=== PATIENT | male | born 1950 | race Caucasian/White ===

== ENCOUNTER 2016-06-19 21:21 | Emergency (ER) | payer BC ==
--- NOTE | 2016-06-19 22:57 | DIAGNOSTIC IMAGING REPORT ---
PROCEDURE: XR CHEST 1 VIEW INDICATION: CHEST PAIN TECHNIQUE: Portable AP view (). COMPARISON: Compared to chest x-ray on 08/29/2012. FINDINGS: Status post mediastinotomy. Interim placement of left subclavian pacemaker/defibrillator. Lungs are clear. Borderline cardiomegaly. Mediastinum is of normal size with tortuous aorta. There is an old distal left clavicle fracture. IMPRESSION: 1. Status post coronary artery bypass graft. 2. Left subclavian pacemaker/defibrillator. 3. Borderline cardiomegaly. 4. Otherwise negative chest.
--- NOTE | 2016-06-19 23:31 | DIAGNOSTIC IMAGING REPORT ---
PROCEDURE: CTA THORAX WITH CONTRAST INDICATION: Left chest pain. Cardiac history. Assess for pulmonary embolus. TECHNIQUE: 85 ml of Isovue 370 was injected intravenously and axial images were obtained of the entire thorax with 3D sagittal and coronal MIP reconstructions. COMPARISON: Comparison made to chest x-ray earlier in the day (06/19/2016). FINDINGS: Lungs are clear (of mild bilateral parenchymal scarring). Pulmonary vessels are normal and there is no evidence of pulmonary embolus. Status post mediastinotomy and coronary artery bypass graft. Left subclavian pacemaker/defibrillator. Mild cardiomegaly. Mediastinum is normal. There are old left rib fractures. IMPRESSION: 1. No evidence of pulmonary embolus. 2. Status post coronary artery bypass graft. 3. Left subclavian pacemaker/defibrillator. 4. Mild cardiomegaly. 5. Findings discussed with Dr. Miguel Pierre. All CT scans at this facility use dose modulation, iterative reconstruction, and/or weight-based dosing when appropriate to reduce radiation dose to as low as reasonably achievable.
--- NOTE | 2016-06-20 00:54 | ED ORDER SUMMARY ---
..... Patient: BRAXTON MIN OrderSheet [facility] VisitID: [id number] [address] [place] [address] 65y, M Registration Date/Time: 06/19/2016 ORDER SHEET Weight: 75.7 kg (stated) Allergies: None GENERAL ORDERS: Envelope Press Operator (Continuous) (cp) (21:06/19/2016 Nathaniel Pappas) (Ack 21:27 AMcQuoid ER Tech1) (21:30 NHouse ER Tech1) Chest 1V Urgent (21:06/19/2016 Nathaniel Pappas) (Ack 21:27 AMcQuoid ER Tech1) (21:33 RFay) CBC w Diff Urgent (21:06/19/2016 Nathaniel Pappas) (Ack 21:27 AMcQuoid ER Tech1) (21:48 AMcQuoid ER Tech1) CMP Urgent (21:06/19/2016 Nathaniel Pappas) (Ack 21:27 AMcQuoid ER Tech1) (21:48 AMcQuoid ER Tech1) PT with INR Urgent (21:06/19/2016 Nathaniel Pappas) (Ack 21:27 AMcQuoid ER Tech1) (21:48 AMcQuoid ER Tech1) UA-Culture if indicated Urgent (21:06/19/2016 Nathaniel Pappas) (Ack 21:27 AMcQuoid ER Tech1) (Cancelled: Patient Unavailable0:55 HSoule) Troponin-I Urgent (21:06/19/2016 Nathaniel Pappas) (Ack 21:27 AMcQuoid ER Tech1) (21:48 AMcQuoid ER Tech1) D-Dimer Urgent (21:06/19/2016 Nathaniel Pappas) (Ack 21:27 AMcQuoid ER Tech1) (21:48 AMcQuoid ER Tech1) EKG - ER Stat (21:06/19/2016 Nathaniel Pappas) (Ack 21:27 AMcQuoid ER Tech1) (21:30 NHouse ER Tech1) Pulse oximeter (21:06/19/2016 Nathaniel Pappas) (Ack 21:27 AMcQuoid ER Tech1) (21:30 NHouse ER Tech1) BNP Urgent (21:46 06/19/2016 Nathaniel Pappas) (21:48 AMcQuoid ER Tech1) CTA Thorax w Cont (No) (N/A) Urgent (22:02 06/19/2016 Nathaniel Pappas) (Ack 22:04 AMcQuoid ER Tech1) (22:32 AMcQuoid ER Tech1) Consult - [place] (22:52 06/19/2016 Nathaniel Pappas) (Ack 22:55 AMcQuoid ER Tech1) (23:12 NHouse ER Tech1) Troponin-I (Draw 3 hours after first lab drawn per cardiology) Urgent (23:22 06/19/2016 Nathaniel Pappas) (Ack 23:32 NHouse ER Tech1) (0:31 NHouse ER Tech1) MEDICATION ORDERS: IV FLUIDS: IV Saline Lock (21:24 06/19/2016 Nathaniel Pappas) (21:32 HSoule) Morphine IV 4 mg (HIGH ALERT MEDICATION, NOW) (22:02 06/19/2016 Nathaniel Pappas) (Ack 22:04 HSoule) (22:09 HSoule) Zofran IV 4 mg (NOW) (22:07 06/19/2016 Nathaniel Pappas) (22:09 HSoule) ORDER SHEET NOTES: [Electronically signed by Merlyn Montez (01:06/20/2016)] [Electronically signed by Miguel Pierre Dr. (07:01 06/21/2016)] [Electronically locked/signed by Merlyn Montez (01:06/20/2016)]
--- NOTE | 2016-06-20 00:54 | ED NURSING NOTES ---
Clinical Report - Nurses [facility] [address] [place] [address] 06/19/2016 21:22 Patient: BRAXTON MIN TRIAGE Triage time 21:Jun 19 2016. Acuity: LEVEL 2. Chief Complaint: CHEST PAIN. SEPSIS SCREEN: Sepsis Screen: negative. Negative (no infection suspected/documented). --21:29 Merlyn Montez 21:23 06/19/16. BP: 151/97. HR: 102. RR: 20. O2 saturation: 100% on room air. Pain level now: 06/04. --21:29 Merlyn Montez. Weight: 75.7 kg stated. Height/Length: 67 inches Per Patient. BMI: 26.2. --21:29 Merlyn Montez. Medications ASA 81MG 1-3 TABS A DAY . --21:24 Merlyn Montez Carvedilol Oral. --21:25 Merlyn Montze Lisinopril Oral. --21:25 Merlyn Montez. Allergies None. --21:26 Merlyn Montez. Medication/allergy information source: the patient. --21:29 Merlyn Montez. History Arrived by private vehicle. Historian: patient. Accompanied by family. Primary physician ([facility]). This started yesterday. ( Patient reports an extensive cardiac history. He states he began having chest pain yesterday. He reports nausea and left arm numbness as well. He states that he has had an aspirin today.). He has had a cough. PAST MEDICAL HX: Hypertension. Heart disease. Immunizations: up-to-date. SOCIAL HX: Heavy tobacco smoker (cigarette)- 1 pack per day. Alcohol use; consumes six beers a day. No drug use. No infectious disease exposure. ABUSE ASSESSMENT: No report of abuse. FALL RISK ASSESSMENT: Fall risk assessment completed. No fall risk identified. NUTRITIONAL RISK ASSESSMENT: The nutritional risk assessment revealed no deficiencies. FUNCTIONAL ASSESSMENT: Functional assessment: no impairments noted. LEARNING NEEDS ASSESSMENT: The learning needs assessment revealed no barriers. SKIN INTEGRITY ASSESSMENT: Skin integrity risk assessment completed. No skin integrity risk identified. --21: Merlyn Montez. PROBLEMS: Myocardial Infarction. Pneumonia. Pacemaker. Rib Fracture. Abnormal Liver Function Test. Tetanus Status. Open heart surg 10 yrs ago . Hypertension. --: Merlyn Montez. ADDITIONAL SURGERIES: Coronary artery bypass grafts x 4. Pacemaker. --: Merlyn Montez. Interventions ID band on patient. To treatment room. --: Merlyn Montez. PHYSICAL ASSESSMENT Ambulatory to room. Patient gowned. GENERAL / NEURO / PSYCH: Alert. Oriented X 4. Appears in pain. RESPIRATORY: Respirations not labored. CVS: Pulses within normal limits. SKIN: Skin is warm and dry. --: Merlyn Montez. NURSING PROGRESS NOTES :06/19/2016 Site #1 started via IV in the right antecubital space with an 20g angiocath, with aseptic technique and good blood return; one attempt. Blood drawn: rainbow set. Labeled in the presence of the patient and sent to the lab. Saline lock flushed with 10 mL saline. --21: Merlyn Montez Oxygen administered by nasal cannula at 2 liters. money examiner, pulse oximeter and NIBP monitor placed on patient. Patient gowned. Reassurance given to the patient. Two patient identifiers checked. Call light placed in reach. Side rails up x 1. Bed placed in lowest position. Brakes of bed on. Patient ready for evaluation- chart flagged and ED physician notified. --21:32 Merlyn Montez Patient ID band checked for patient name and birthdate: patient confirmed. Blood samples drawn from the right antecubital space peripheral IV site by nurse ; labeled in presence of the patient and sent to lab: rainbow set: cardiac enzymes (1st set). Line flushed with 10 mL normal saline post blood draw. --21:32 Merlyn Montez EKG time: (2130). EKG was ordered, performed by a tech and shown to the ED physician. --21:33 Carlotta Cool ER Tech1 21:57 06/19/16. BP: 145/96. HR: 95. RR: 18. O2 saturation: 99% on nasal cannula at 2 liters/minute. Pain level now: 06/04. --21:57 Merlyn Montez 22:07 06/19/2016 Zofran (Ondansetron HCl) IVP 4 mg given over 1 minute(s) via site #1. Allergies verified and confirmed 5 rights. IV patency established. IV site checked: no pain, redness, or swelling. IV flushed thoroughly pre- and post-medication administration. IVP given by RN. --22:09 MelidaRojas carrillonah 22:09 06/19/2016 Morphine IVP 4 mg given over 1 minute(s) via site #1. Allergies verified, confirmed 5 rights and sedative warning given to the patient and patient's family. IV patency established. IV site checked: no pain, redness, or swelling. IV flushed thoroughly pre- and post-medication administration. IVP given by RN. --22:09 MelidaRojas carrillonah 22:15 06/19/2016 Site #2 started via IV in the left antecubital space with an 18g angiocath, with aseptic technique and good blood return; one attempt. Saline lock flushed with 10 mL saline. --22:15 MelidaLarissa carrilloh Patient transported to radiology by stretcher with tech. (22:15 Jun 19 2016). --22:15 MelidaMerlyn carrillo Patient returned from CT by stretcher with tech. (22:36 Jun 19 2016). --22:36 MelidaRojas carrillonah 23:14 06/19/16. BP: 105/74. HR: 86. RR: 20. O2 saturation: 99% on nasal cannula at 1 liters/minute. Pain level now: 05/07. --23:14 MelidaRojasMerlyn 23:29 06/19/16. BP: 116/74. HR: 86. RR: 20. O2 saturation: 97% on nasal cannula at 1 liters/minute. Pain level now: 05/07. --23:30 Merlyn Montez 23:54 06/19/16. BP: 117/75. HR: 80. RR: 20. O2 saturation: 100% on nasal cannula at 2 liters/minute. --23:55 Merlyn Montez 23:57 06/19/16. ( Patient's spouse inquiring about that is taking two hours to find answers. Plan of care and cardiac enzymes discussed with patient and spouse. Patient agreeable to treatment plan.). --23:58 Merlyn Montez 00:30 06/20/16. Patient ID band checked for patient name and birthdate: patient confirmed. Blood samples drawn by nurse ; labeled in presence of the patient and sent to lab: cardiac enzymes (2nd set). --00:33 Merlyn Montez 00:48 06/20/16. BP: 107/69. HR: 74. RR: 20. O2 saturation: 99% on nasal cannula at 2 liters/minute. Pain level now: 06/04. --00:50 Rojas Monteznah. DISPOSITION / DISCHARGE 00:54 06/20/2016 Site #1 removed upon discharge. Catheter intact. Bandaid applied. --00:54 Merlyn Montez 00:54 06/20/2016 Site #2 removed upon discharge. Catheter intact. Bandaid applied. --00:54 Merlyn Montez 00:54 06/20/16. Condition at departure: stable. The goals identified in the patient's plan of care were met. FALL RISK ASSESSMENT: Fall risk assessment completed. No fall risk identified. --00:54 Merlyn Montez 00:53 06/20/16. BP: 107/69. HR: 76. RR: 18. O2 saturation: 100% on room air. Pain level now: 06/04. --00:54 MelidaRojasMerlyn 00:54 06/20/16. BP: 112/73. --00:54 Melida Merlyn 01:00 06/20/16. No learning barriers present. Discharge instructions provided and reviewed with the patient and spouse. Reviewed warnings (Return if symptoms worsen). Reviewed need to stop smoking. Patient and spouse verbalized understanding. Written instructions provided in Lithuanian. ( Follow up with your scheduled appointment on July 01, Return if symptoms worsen.). The patient was discharged by the physician. He was discharged home and accompanied by spouse. He left the Emergency Department ambulatory and via private vehicle. Spouse driving. --01:00 Melida Merlyn 01:01 06/20/16. Temp: 98.4 F (oral). --01:01 Merlyn Montez. Locked/Released at 06/20/2016 1:01 by Merlyn Montez,
--- NOTE | 2016-06-20 00:54 | ED CLINICAL REPORT ---
Clinical Report - Physicians/Mid Levels [facility] [address] [place] [address] 06/19/2016 21:22 Patient: BRAXTON MIN Time Seen: 2115; initial patient contact. Arrived- By private vehicle. Historian- patient. HISTORY OF PRESENT ILLNESS Chief Complaint: CHEST PAIN. At its maximum, severity described as moderate. When seen in the E.D., severity described as moderate. Modifying factors. Not worsened by exertion. Not worsened by anything. Not relieved by anything. It is described as located in the left chest area. No radiation. This started 3 days ago and is still present. It was abrupt in onset and has been constant but is not gone now. Onset during rest. No nausea, vomiting, difficulty breathing or diaphoresis. No additional chest pain. Similar symptoms previously: Recent medical care: Not recently seen/assessed. REVIEW OF SYSTEMS No fever or chills. All systems otherwise negative, except as recorded above. PAST HISTORY See nurses notes. Medications: Lisinopril Oral. Carvedilol Oral. ASA 81MG 1-3 TABS A DAY . Allergies: None. SOCIAL HISTORY Never smoker. No alcohol use or drug use. No recent travel. Is a local resident. ADDITIONAL NOTES The nursing notes have been reviewed. PHYSICAL EXAM Vital Signs: 06/19/2016 21:23 BP: 151/97. HR: 102. RR: 20. O2 saturation: 100%. Pain level now: 3/10. Oxygen saturation normal. Appearance: Alert. Oriented X3. No acute distress. Eyes: Pupils equal, round and reactive to light. Eyes normal inspection. Neck: Normal inspection. Neck supple. No JVD. CVS: Normal heart rate and rhythm. Heart sounds normal. Pulses normal. Respiratory: No respiratory distress. Breath sounds normal. Chest nontender. No rales, rhonchi or wheezes. Abdomen: Soft and nontender. Bowel sounds normal. Back: Normal external inspection. Skin: Skin warm and dry. Normal skin color. No rash. Normal skin turgor. Extremities: Extremities exhibit normal ROM. No lower extremity edema. LABS, X-RAYS, AND EKG EKG: No acute ischemia. Normal sinus rhythm. Normal P waves. Normal KAVITHA. Normal QRS complex. Normal axis. Non-specific ST segment / T wave abnormalities in lead V5 and V6 (depressed and inverted). Chest X-ray: (PROCEDURE: XR CHEST 1 VIEW INDICATION: CHEST PAIN TECHNIQUE: Portable AP view (). COMPARISON: Compared to chest x-ray on 08/29/2012. FINDINGS: Status post mediastinotomy. Interim placement of left subclavian pacemaker/defibrillator. Lungs are clear. Borderline cardiomegaly. Mediastinum is of normal size with tortuous aorta. There is an old distal left clavicle fracture. IMPRESSION: 1. Status post coronary artery bypass graft. 2. Left subclavian pacemaker/defibrillator. 3. Borderline cardiomegaly. 4. Otherwise negative chest.). The X-rays were independently viewed by me and interpreted by the radiologist. The X-rays were discussed with the radiologist (via pacs). Chest CT: (PROCEDURE: CTA THORAX WITH CONTRAST INDICATION: Left chest pain. Cardiac history. Assess for pulmonary embolus. TECHNIQUE: 85 ml of Isovue 370 was injected intravenously and axial images were obtained of the entire thorax with 3D sagittal and coronal MIP reconstructions. COMPARISON: Comparison made to chest x-ray earlier in the day (06/19/2016). FINDINGS: Lungs are clear (of mild bilateral parenchymal scarring). Pulmonary vessels are normal and there is no evidence of pulmonary embolus. Status post mediastinotomy and coronary artery bypass graft. Left subclavian pacemaker/defibrillator. Mild cardiomegaly. Mediastinum is normal. There are old left rib fractures. IMPRESSION: 1. No evidence of pulmonary embolus. 2. Status post coronary artery bypass graft. 3. Left subclavian pacemaker/defibrillator. 4. Mild cardiomegaly.). Chest CT performed with contrast. The study was independently viewed by me and interpreted by the radiologist. The study was discussed with the radiologist (via phone and pacs). Laboratory Tests: CBC w Diff: (SUDEEP: 06/19/2016 21:26) ( MsgRcvd 06/19/2016 21:45) Final results Test Result Flag Units (Reference) WHITE BLOOD COUNT 10.0 K/uL (4.5-11.5) RED BLOOD COUNT 4.62 M/uL (4.50-5.90) HEMOGLOBIN 14.9 gm/dL (13.5-17.5) HEMATOCRIT 43.0 % (41.0-53.0) MEAN CELL VOLUME 93 fL (80-100) MEAN CORPUSCULAR HGB 32 pg (26-34) MEAN CORPUSCULAR HGB CONC 35 g/dL (31-37) RED CELL DISTRIBUTION WIDTH 13.9 % (11.6-14.8) PLATELET COUNT 91 L K/uL (150-400) NEUTROPHIL % 66.8 % (50-75) LYMPH % 23.3 L % (25-40) MONO % 8.6 % (3-14) EOSINOPHIL % 0.5 % (0-4) BASOPHIL % 0.8 % (0-2) [id number]: (SUDEEP: 06/19/2016 21:26) ( MsgRcvd 06/19/2016 21:55) Final results Test Result Flag Units (Reference) INR 0.9 (0.8-1.2) Low Intensity Therapy: INR 1.5-2.0 PT range 18.5-23.1Mod.Intensity Therapy: INR 2.0-3.0 PT range 23.1-31.5High Intensity Therapy: INR 2.5-3.5 PT range 27.4-35.5High Intensity Therapy 2: INR 3.0-4.0 PT range 31.5-39.3 D-DIMER QUANTITATIVE 1.46 H ug/mLFEU (0.27-0.52) The primary value of this quantitative assay relates toits negative predictive value (i.e. exclusion) of pulmonaryembolism/deep vein thrombosis/DIC.Elevated levels of d-dimer may also occur with:, age, cancer, inflammation, liver disease,post-op, infection, hematoma, coronary disease, peripheralarteriopathy, bleeding disorders and thrombolytic treatment.Results should be correlated with other clinical andradiological data.Testing Methodology: Latex Immunoassay Troponin-I: (SUDEEP: 06/19/2016 00:01) ( MsgRcvd 06/20/2016 00:47) Final results Test Result Flag Units (Reference) TROPONIN I <0.05 ng/mL (0.00-1.5) TROPONIN REFERENCE RANGE:<0.1 NEGATIVE0.1-1.5 INDETERMINANT>1.5 POSITIVE BNP: (SUDEEP: 06/19/2016 21:26) ( [facility] 06[facility] 22:32) Final results Test Result Flag Units (Reference) B-TYPE NATRIURETIC PEPTIDE 429 H pg/ml (5-100) CMP: (SUDEEP: 06/19/2016 21:26) ( ScgRcvd 06/19/2016 22:01) Final results Test Result Flag Units (Reference) GLUCOSE 149 H mg/dL (70-110) BUN 13 mg/dL (7-18) CREATININE 1.1 mg/dL (0.6-1.3) Estimated GFR >60 mL/min Estimated GFR- >60 mL/min Note: Persistent reduction over 3 months in eGFR<60 mL/min/1.73 m2 defines CKD. Patients with eGFR values>=60 mL/min/1.73 m2 may also have CKD if evidence ofpersistent proteinuria. Additional information may be foundat www.kidney.org. SODIUM 135 L mmol/L (136-145) POTASSIUM 3.7 mmol/L (3.5-5.1) CHLORIDE 98 mmol/L (98-107) CARBON DIOXIDE 29 mmol/L (21-32) CALCIUM 8.6 mg/dL (8.5-10.1) TOTAL PROTEIN 7.7 g/dL (6.4-8.2) ALBUMIN 3.6 g/dL (3.3-5.0) BILIRUBIN, TOTAL 0.9 mg/dL (0.0-1.0) ALKALINE PHOSPHATASE 134 H U/L (46-116) AST (SGOT) 146 H U/L (15-37) ALT (SGPT) 144 H U/L (12-78) TROPONIN I <0.05 ng/mL (0.00-1.5) TROPONIN REFERENCE RANGE:<0.1 NEGATIVE0.1-1.5 INDETERMINANT>1.5 POSITIVE . PROGRESS AND PROCEDURES Course of Care: The patient is a pleasant 65-year-old male with past medical history significant for coronary disease presenting for evaluation of chest pain. The patient is reporting left-sided chest pain. Differential diagnosis at this time includes pulm thoracic dissection, and acute myocardial infarction. Patient will be evaluated with troponin as well as d-dimer. EKG and chest x-ray been ordered. Patient is agreeable to treatment plan. Pain medication has been ordered. patient's workup was markable for the findings above. Troponin 1 is noted to be negative. The patient's d-dimer is noted to be elevated. CT scan of the chest has been ordered for evaluation of potential pulmonary embolism or thoracic aortic dissection. Cardiology consult. Because of the patient's cardiac history. Negative stress test recently in 2016. Low 10 - 15% EF. Fixed wall abnormality. No reversible abnormalities. BNP normally around 500. Spoke with Dr. Chan. Patient not a good stent candidate. Echo scheduled for July 01 at [facility]. Missed appointment on May 31. Last EGK on Dec 23 2015. Flipped T waves V3 - V6. Appears to be better today. Cardiology recommended patient have delta troponin ordered. If the troponin is normal, patient can follow-up in the clinic. Second troponin is ordered Per cardiology's recommendations. Delta troponin is negative. Patient is a good outpatient candidate. Patient encouraged to follow up with his primary care Dr. Coats fill patient is given myocardial infarction, thoracic aortic aneurysm, Or pulmonary embolism. Had long discussion patient in regards his workup here in the emergency department including diagnosis, home care, follow-up, and return precautions. All questions have been answered. The patient expressed understanding of these instructions and was agreeable to them. Consult obtained from cardiology. Disposition: Discharged. Condition: good. CLINICAL IMPRESSION 06/20/2016 00:48 BP: 107/69. HR: 74. RR: 20. O2 saturation: 99%. Pain level now: 3/10. Blood pressure normal. Oxygen saturation normal. Atypical chest pain (left sided). 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 Warnings: GENERAL WARNINGS: Return or contact your physician immediately if your condition worsens or changes unexpectedly, if not improving as expected, or if other problems arise. SPECIFICALLY, return if you develop chest, neck, jaw, shoulder, arm, or back pain, difficulty breathing, a fluttering sensation in your chest, lightheadedness, fainting, excessive fatigue, or sudden sweating. Your Current Medications: CONTINUE TAKING THE FOLLOWING MEDICATIONS: ASA 81MG 1-3 TABS A DAY *. Carvedilol Oral. Lisinopril Oral. Follow-up: Return to the emergency department as needed. Follow up with your doctor in three days. Reason for referral: recheck today's concerns. Summary of care provided to patient via paper. Screening today revealed the patient's blood pressure to be in the normal range. The patient should follow up with a primary care provider for blood pressure management. Understanding of the discharge instructions verbalized by patient. (Electronically signed by Miguel Pierre Dr. 06/21/2016 7:01)
--- NOTE | 2016-06-20 00:54 | ED ORDER SUMMARY ---
..... Patient: BRAXTON MIN OrderSheet [facility] VisitID: [id number] [address] [place] [address] 65y, M Registration Date/Time: 06/19/2016 ORDER SHEET Weight: 75.7 kg (stated) Allergies: None GENERAL ORDERS: Envelope Press Operator (Continuous) (cp) (21:06/19/2016 Nathaniel Pappas) (Ack 21:27 AMcQuoid ER Tech1) (21:30 NHouse ER Tech1) Chest 1V Urgent (21:06/19/2016 Nathaniel Pappas) (Ack 21:27 AMcQuoid ER Tech1) (21:33 RFay) CBC w Diff Urgent (21:06/19/2016 Nathaniel Pappas) (Ack 21:27 AMcQuoid ER Tech1) (21:48 AMcQuoid ER Tech1) CMP Urgent (21:06/19/2016 Nathaniel Pappas) (Ack 21:27 AMcQuoid ER Tech1) (21:48 AMcQuoid ER Tech1) PT with INR Urgent (21:06/19/2016 Nathaniel Pappas) (Ack 21:27 AMcQuoid ER Tech1) (21:48 AMcQuoid ER Tech1) UA-Culture if indicated Urgent (21:06/19/2016 Nathaniel Pappas) (Ack 21:27 AMcQuoid ER Tech1) (Cancelled: Patient Unavailable0:55 HSoule) Troponin-I Urgent (21:06/19/2016 Nathaniel Pappas) (Ack 21:27 AMcQuoid ER Tech1) (21:48 AMcQuoid ER Tech1) D-Dimer Urgent (21:06/19/2016 Nathaniel Pappas) (Ack 21:27 AMcQuoid ER Tech1) (21:48 AMcQuoid ER Tech1) EKG - ER Stat (21:06/19/2016 Nathaniel Pappas) (Ack 21:27 AMcQuoid ER Tech1) (21:30 NHouse ER Tech1) Pulse oximeter (21:06/19/2016 Nathaniel Pappas) (Ack 21:27 AMcQuoid ER Tech1) (21:30 NHouse ER Tech1) BNP Urgent (21:46 06/19/2016 Nathaniel Pappas) (21:48 AMcQuoid ER Tech1) CTA Thorax w Cont (No) (N/A) Urgent (22:02 06/19/2016 Nathaniel Pappas) (Ack 22:04 AMcQuoid ER Tech1) (22:32 AMcQuoid ER Tech1) Consult - Helicopter Repairer (22:52 06/19/2016 Nathaniel Pappas) (Ack 22:55 AMcQuoid ER Tech1) (23:12 NHouse ER Tech1) Troponin-I (Draw 3 hours after first lab drawn per cardiology) Urgent (23:22 06/19/2016 Nathaniel Pappas) (Ack 23:32 NHouse ER Tech1) (0:31 NHouse ER Tech1) MEDICATION ORDERS: IV FLUIDS: IV Saline Lock (21:24 06/19/2016 Nathaniel Pappas) (21:32 HSoule) Morphine IV 4 mg (HIGH ALERT MEDICATION, NOW) (22:02 06/19/2016 Nathaniel Pappas) (Ack 22:04 HSoule) (22:09 HSoule) Zofran IV 4 mg (NOW) (22:07 06/19/2016 Nathaniel Pappas) (22:09 HSoule) ORDER SHEET NOTES: [Electronically signed by Merlyn Montez (01:06/20/2016)] [Electronically signed by Miguel Pierre Dr. (07:01 06/21/2016)] [Electronically locked/signed by Merlyn Montez (01:06/20/2016)]
--- NOTE | 2016-06-21 07:01 | ED MED RECONCILIATION SUMMARY ---
Patient: BRAXTON MIN Medication Reconciliation Report [facility] VisitID: [id number] [address] [place] [address] 65y, M Registration Date/Time: 06/19/2016 Weight: 75.7 kg Height/Length: 67 in. BMI: 26.2 ALLERGIES: None The patient's Home Medications are listed below: CONTINUE TAKING THE FOLLOWING MEDICATIONS: ASA 81MG 1-3 TABS A DAY Carvedilol Oral Lisinopril Oral The source(s) of the original Home Medication information: patient The following Medications were given to the patient in the Emergency Department: Zofran [IVP] IVP 4 mg, administered: 06/19/2016 10:07:00 PM Morphine [IVP] IVP 4 mg, administered: 06/19/2016 10:09:00 PM The following Medications were prescribed to the patient: None.
--- NOTE | 2016-06-21 07:01 | ED DISCHARGE INSTRUCTIONS ---
Patient: BRAXTON MIN General Instructions [facility] VisitID: [id number] [place] [address] 65y, M Registration Date/Time: 06/19/2016 06/20/2016 00:48 BP: 107/69. HR: 74. RR: 20. O2 saturation: 99%. Pain level now: 3/10. Blood pressure normal. Oxygen saturation normal. Atypical chest pain (left sided). 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 Warnings: GENERAL WARNINGS: Return or contact your physician immediately if your condition worsens or changes unexpectedly, if not improving as expected, or if other problems arise. SPECIFICALLY, return if you develop chest, neck, jaw, shoulder, arm, or back pain, difficulty breathing, a fluttering sensation in your chest, lightheadedness, fainting, excessive fatigue, or sudden sweating. Your Current Medications: CONTINUE TAKING THE FOLLOWING MEDICATIONS: ASA 81MG 1-3 TABS A DAY *. Carvedilol Oral. Lisinopril Oral. Follow-up: Return to the emergency department as needed. Follow up with your doctor in three days. Reason for referral: recheck today's concerns. Summary of care provided to patient via paper. Screening today revealed the patient's blood pressure to be in the normal range. The patient should follow up with a primary care provider for blood pressure management. Understanding of the discharge instructions verbalized by patient. ADDITIONAL INFORMATION Chest Pain, Uncertain Cause Chest pain can happen for a number of reasons. Sometimes the cause can not be determined. If yourcondition does not seem serious, and your pain does not appear to be coming from your heart, your doctor may recommend watching it closely. Sometimes the signs of a serious problem take more time to appear. Therefore, watch for the warning signs listed below. Home care After your visit, follow these recommendations: Rest today and avoid strenuous activity. Take any prescribed medicine as directed. Follow-up care Follow up with your doctor or this facility as instructed or if you do not start to feel better within 24 hours. Call 911 Get immediate medical attention if any of the following occur: A change in the type of pain: if it feels different, becomes more severe, lasts longer, or begins to spread into your shoulder, arm, neck, jaw or back Shortness of breath or increased pain with breathing Weakness, dizziness, or fainting Rapid heart beat Get prompt medical attention Call your doctor right away if any of the following occur: Cough with dark colored sputum (phlegm) or blood Fever of 100.4F(38C) or higher, or as directed by your health care provider Swelling, pain or redness in one leg Heart Failure (Left Or Right Sided) The heart is a large muscle that pumps blood throughout the body. Blood carries oxygen to all the organs, muscles, and skin of your body. After the body takes the oxygen out of the blood, the blood returns to the heart. The right side of the heart collects that blood and pumps it to the lungs to receive fresh oxygen. This oxygen-rich blood from the lungs then returns to the left side of the heart where it is pumped back out to the rest of the body, starting the process all over. Heart Failure (HF) occurs when the heart muscle is weakened. This affects the pumping action of the heart. When the right side of the heart is weakened, it cant handle the blood it is receiving from the rest of the body. This blood returns to the heart through veins. When too much pressure builds up in the veins fluid leaks out into the tissues. [place] then causes that fluid to spread to those parts of the body that are the lowest. Therefore, one of the first symptoms of HF include swelling in the feet and ankles. If the condition worsens, the swelling can even go up past the knees. When the left side of the heart is weakened, it cant handle the blood it is receiving from the lungs. Pressure then builds up in the veins of the lungs, causing fluid to leakinto the lung tissues. This may be referred to as congestive heart failure.This causes you to feel short of breath, weak, or dizzy. These symptoms are often worse with exertion, such as climbing stairs or walking up hills. Lying flat is uncomfortable and can make your breathing worse. This may make sleeping difficult and force you to useextra pillows to sleep well. This condition may not only affect the right side of the heart or only the left side. While it may have started on one side, it often affects both sides. Causes of heart failure Coronary artery disease Prior heart attack (also known as acute myocardial infarction, or AMI) High blood pressure Damaged heart valve Diabetes Obesity Cigarette smoking Alcohol abuse Treatment Heart failure is a chronic condition. There is no cure. The purpose of medical treatment is to improve the pumping action of the heart, and remove excess water from the body. A number of medications can help achieve this goal,improvesymptoms and prevent the heart from becoming weaker. Another major goal is to better treat the caues of heart failure, such as diabetes, high blood pressure, and your lifestyle. Home care Check your weight every day. A sudden increase in weight gain could mean worsening heart failure. Use the same scale every day Weigh yourself at the same time every day Make sure the scale is on the floor, not on a rug Keep a record of your weight every day, so your doctor can see it. If you are not given a log sheet for this, keep a separate journal for this purpose. Reduce your salt (sodium) intake. Avoid high-salt foods (olives, pickles, smoked meats, salted potato chips, etc.). Do not add salt to your food at the table and use only small amounts of salt when cooking. Follow your doctors recommendations about how much fluid intake is safe. Stop smoking. Reduce alcohol use. Lose weight if you are overweight. The excess weight adds a lot of stress on the workload of the heart. Stay active. Talk to your doctor about an exercise program that is safe for your heart. Keep your feet elevated to reduce swelling. Ask your doctor about support hose as a preventive treatment for daytime leg swelling. Besides taking your medicine as instructed, an important part of treatment includes lifestyle changes such as diet, physical activity, stopping smoking, and weight control. Improve your diet. Often in the hospital, people are given a "heart healthy diet." This includes more fresh foods, lower fat, less processed foots, and lower salt. Follow-up care Follow up with your doctor as directed by our staff. Make sure to keep any appointments that were made for you as this can help better control heart failure. If an X-ray was done, you will be notified of any new findings that may affect your care. Call 911 Call 911 if you: Become severely short of breath Feel lightheaded, or feel like you might pass out or faint Have chest pain or discomfort that is different than usual, the medicines your doctor told you to use for this do not help, or the pain lasts longer than 10 to 15 minutes Suddendly develop a rapid heart rate When to seek medical care Get prompt medical attention if you have any of the following signs of worsening heart failure: Sudden weight gain (3or more pounds in one day or5or more pounds in one week) Trouble breathing not related to being active New or increased swelling of your legs or ankles Swelling or pain in your abdomen Breathing trouble at night (waking up short of breath, needing more pillows to breathe) Frequent coughing that doesnt go away Feeling much more tired than usual You have been given the following additional information: Chest Pain, Uncertain Cause Heart Failure, General (Electronically signed by Miguel Pierre Dr. 06/21/2016 7:01)
--- NOTE | 2016-06-21 07:01 | ED MED RECONCILIATION SUMMARY ---
Patient: BRAXTON MIN Medication Reconciliation Report [facility] VisitID: [id number] [address] [place] [address] 65y, M Registration Date/Time: 06/19/2016 Weight: 75.7 kg Height/Length: 67 in. BMI: 26.2 ALLERGIES: None The patient's Home Medications are listed below: CONTINUE TAKING THE FOLLOWING MEDICATIONS: ASA 81MG 1-3 TABS A DAY Carvedilol Oral Lisinopril Oral The source(s) of the original Home Medication information: patient The following Medications were given to the patient in the Emergency Department: Zofran [IVP] IVP 4 mg, administered: 06/19/2016 10:07:00 PM Morphine [IVP] IVP 4 mg, administered: 06/19/2016 10:09:00 PM The following Medications were prescribed to the patient: None.
--- NOTE | 2016-06-21 07:01 | ED MAR SUMMARY ---
..... Medication Administration [facility] [address] [place] [address] Patient: BRAXTON MIN Visit ID: [id number] 65y, M Weight: 75.7 kg Height/Length: 67 in BMI: 26.2 ALLERGIES: None Given 22:06/19/2016 Merlyn Montez, Medication Administered: ZOFRAN [IVP] (ONDANSETRON HCL), Dose: 4 mg IVP over 1 minute(s), Site: #1 right AC. Medication Ordered: Zofran IV 4 mg (NOW). Given 22:06/19/2016 Merlyn Montez, Medication Administered: MORPHINE [IVP], Dose: 4 mg IVP over 1 minute(s), Site: #1 right AC. Medication Ordered: Morphine IV 4 mg (HIGH ALERT MEDICATION, NOW).
--- NOTE | 2016-06-21 07:01 | ED MAR SUMMARY ---
..... Medication Administration Record [facility] [address] [place] [address] Patient: BRAXTON MIN Visit ID: [id number] 65y, M Weight: 75.7 kg Height/Length: 67 in BMI: 26.2 ALLERGIES: None Given 22:06/19/2016 Merlyn Montez, Medication Administered: ZOFRAN [IVP] (ONDANSETRON HCL), Dose: 4 mg IVP over 1 minute(s), Site: #1 right AC. Medication Ordered: Zofran IV 4 mg (NOW). Given 22:06/19/2016 Merlyn Montez, Medication Administered: MORPHINE [IVP], Dose: 4 mg IVP over 1 minute(s), Site: #1 right AC. Medication Ordered: Morphine IV 4 mg (HIGH ALERT MEDICATION, NOW).
== END 2016-06-20 01:00 | disposition home or self-care (01) ==
LOC: ED SRH 21:21
DX: I50.9 Heart failure, unspecified (principal); R07.89 Other chest pain; I10 Essential (primary) hypertension; I25.2 Old myocardial infarction; Z79.899 Other long term (current) drug therapy; F17.210 Nicotine dependence, cigarettes, uncomplicated; Z95.1 Presence of aortocoronary bypass graft; Z95.810 Presence of automatic (implantable) cardiac defibrillator
CPT/HCPCS: 90100; 90616; 91320; 91556; 94060; 95059